=== PATIENT | female | born 1990 | race Caucasian/White ===

== ENCOUNTER 2019-08-28 17:19 | Emergency (ER) | payer BC, SELFPAY ==
[2019-08-28 17:58] VITALS: BP 137/76; PULSE 88; RESP 14; TEMP 36.4; O2SAT 100
--- NOTE | 2019-08-28 19:27 | ED.URI ---
HPI - URI/Sore Throat General Chief Complaint: Upper Respiratory Infection Stated Complaint: cough and sore throat Time Seen by Provider: 08/28/19 19:27 Source: patient Mode of arrival: ambulatory Limitations: no limitations History of Present Illness HPI Narrative: Lakisha Armijo is a 28 year old femalw with sore throat, L ear pain, Pain along L belinda and spasm type cough that started 5 days ago and has worsened. Related Data Home Medications Medication Instructions Recorded Confirmed PNV cmb#95-ferrous fumarate-FA 1 tablet PO DAILY 08/28/19 08/28/19 [] Allergies Allergy/AdvReac Type Severity Reaction Status Date / Time amoxicillin [From Augmentin] Allergy Rash Verified 08/28/19 18:11 clavulanic acid Allergy Rash Verified 08/28/19 18:11 [From Augmentin] Review of Systems Review of Systems: Narrative: CONSTITUTIONAL: Denies fever, chills, sweats. EYES: Denies visual changes, redness, discharge. ENT: Has rhinorrhea, has congestion, has sore throat, left otalgia. CARDIOVASCULAR: Denies chest pain, palpitations, edema. RESPIRATORY: Denies dyspnea, wheezing, dry cough GASTROINTESTINAL: Denies abdominal pain, nausea, vomiting, diarrhea. GENITOURINARY: Denies dysuria, hematuria, abnormal discharge SKIN: Denies rash or itching. MUSCULOSKELETAL: Denies acute back pain, joint pain, or myalgia. NEUROLOGIC: Denies numbness, or focal weakness. PSYCHIATRIC: Denies anxiety or depression. PMFSH Social History Social History Smoking status: Never smoker Alcohol intake: former Living arrangements: with family Comments At time of signature, I agree with nursing past medical, surgical, social and family history. There is no relevant family history pertinent to the presenting complaint. Exam Narrative: Exam Narrative: GENERAL: This is a well-nourished, well-developed patient, in no apparent distress. 31-week HEAD: normocephalic, atraumatic. EYES: Sclera clear/white. Vision is grossly intact. EARS: External ears normal, auditory canals clear and without drainage, TMs normal without perforation. Hearing grossly intact. NOSE: External nose normal with no obvious nasal discharge, nares without redness, no rhinorrhea. THROAT: Mucous membranes moist, posterior pharynx clear. NECK: Neck supple, non-tender without lymphadenopathy, masses or thyromegaly. CARDIOVASCULAR: Regular rate and rhythm without murmurs, gallops, or rubs. RESPIRATORY: Clear to auscultation. Breath sounds equal bilaterally. No wheezes, rales, or rhonchi. GASTROINTESTINAL: Abdomen soft, non-tender,distended consistent with gestation. SKIN: warm, intact with no suspicious lesions or rash, good texture and turgor. NEURO: awake, alert, and oriented to person, place and time. There were no obvious focal neurologic abnormalities. Steady gait EXTREMITIES: Normal range of motion. BACK: Nontender without deformity or crepitance. . Course Course Emergency Course: Strep negative treat with Mucinex DM, Flonase, Zpak ( allergic to amoxil), benzocaine lozenges Vital Signs Vital signs: Vital Signs Temperature 97.6 F 08/28/19 17:58 Pulse Rate 88 08/28/19 17:58 Respiratory Rate 14 08/28/19 17:58 Blood Pressure 137/76 08/28/19 17:58 Pulse Oximetry 100 08/28/19 17:58 Temperature 97.6 F 08/28/19 17:58 Pulse Rate 88 08/28/19 17:58 Respiratory Rate 14 08/28/19 17:58 Blood Pressure 137/76 08/28/19 17:58 Pulse Oximetry 100 08/28/19 17:58 MDM - URI/Sore Throat Differential Diagnosis Differential diagnosis: Likely upper respiratory infection, viral infection and pharyngitis Lab Data Labs: Strep Screen Presumptive Negative *(Reference Range: Negative)* Discharge Plan Discharge Clinical Impression: Ear pain, left, Cough Pharyngitis Qualifiers: Pharyngitis/tonsillitis etiology: unspecified etiology Quali
== END 2019-08-28 19:52 | disposition home or self-care (01) ==
PROVIDERS: Emergency Provider Nurse Practitioner; PCP Internal Medicine
DX: J02.9 Acute pharyngitis, unspecified (principal); H92.02 Otalgia, left ear; R05 Cough
CPT/HCPCS: 87081; 87880; 99203; G0463

== ENCOUNTER 2019-11-03 17:55 | Emergency (ER) | payer BC, SELFPAY ==
[2019-11-03] VITALS (9 sets, daily range): BP systolic 105–146; BP diastolic 71–96; PULSE 90–103; RESP 17–25; TEMP 36.6; O2SAT 99–100
--- NOTE | 2019-11-03 18:24 | ECG_ITS ---
Measurements Intervals [place] Rate: 90 P: 52 [place]: 120 QRS: 31 QRSD: 91 T: 42 QT: 369 QTc: 453 Interpretive Statements SINUS RHYTHM INCOMPLETE RIGHT BUNDLE BRANCH BLOCK DELAYED PRECORDIAL R/S TRANSITION BASELINE ARTIFACT- I, III, AVR, AVL BORDERLINE ECG Electronically Signed On 11-04-2019 7:45:38 CDT by Jostin Palacios D.O.
--- NOTE | 2019-11-03 18:26 | ED.ABDPAIN ---
HPI - Abdominal Pain General Chief Complaint: Abdominal Pain Stated Complaint: abdominal pain Time Seen by Provider: 11/03/19 18:05 Source: patient Mode of arrival: ambulatory Limitations: no limitations History of Present Illness HPI narrative: 29 yo female with h/o HELLP syndrome , s/p 2 weeks who presents with c/o sudden onset of mid back pain and pain under both ribs 30 minutes ago. Patient states she had similar symptoms 2 weeks when she was diagnosed with HELLP. Her OBGYN is on staff at [facility], they have been monitoring her liver enzymes and plates. She denies sob, nauea, vomiting or fever. She denies any issues with her c section incision. She had labs drawn on 10/26/19 and her hemoglobin was 8.2 with platelets 405, AST 35 with ALT 58. Related Data Home Medications Medication Instructions Recorded Confirmed ibuprofen 11/03/19 Allergies Allergy/AdvReac Type Severity Reaction Status Date / Time amoxicillin [From Augmentin] Allergy Rash Verified 11/03/19 18:14 clavulanic acid Allergy Rash Verified 11/03/19 18:14 [From Augmentin] Review of Systems Review of Systems: All systems reviewed & are unremarkable except as noted in HPI and below Constitutional: Constitutional: Denies chills, Denies fever(s) and Denies weakness ENT: Denies dizziness Cardiovascular: Cardiovascular: Reports chest pain Respiratory: Respiratory: Denies dyspnea Gastrointestinal: Gastrointestinal: Reports abdominal pain, Denies diarrhea, Reports nausea and Denies vomiting [facility] Past Medical History Medical History (Updated 11/03/19 @ 19:44 by Naomi Dejesus MD) HELLP syndrome Surgical History Surgical History (Updated 11/03/19 @ 18:34 by Naomi Dejesus MD) Status post Social History Social History Smoking status: Never smoker Alcohol intake: former Exam Const: General: alert Orientation/consciousness: patient oriented x3 Other: distress due to pain Resp: Effort & Inspection: normal respiratory effort and no use of accessory muscles Auscultation: clear to auscultation bilaterally and no wheezes Cardio: Rate: regular rate Rhythm: regular rhythm Heart sounds: no murmurs GI: Inspection: non-distended GI Palp: Yes Soft to palpation, Yes Tenderness to palpation present (GI), No Guarding due to palpation present (GI) and No Rigid due to palpation Other: c section transvers clean dry and intact, no drainage or erythema Course Reevaluation(s) Reevaluation #1: PAtient states her pain has completely resolved and she is asking to be discharged. I have discussed with patient that her labs are stable. She states since her pain has spontaneously resolved she is comfortable with discharge home. This pain is likely GI related. Since patient does not have sob and pain has resolved spontaneously I believe it is unlikely PE Date: 11/03/19 Time: 19:40 Vital Signs Vital signs: Vital Signs Temperature 97.8 F 11/03/19 17:57 Pulse Rate 90 11/03/19 17:57 Respiratory Rate 20 11/03/19 17:57 Blood Pressure 146/77 H 11/03/19 17:57 Pulse Oximetry 100 11/03/19 17:57 Temperature 97.8 F 11/03/19 17:57 Pulse Rate 103 H 11/03/19 19:51 Respiratory Rate 17 11/03/19 19:51 Blood Pressure 142/96 H 11/03/19 19:51 Pulse Oximetry 100 11/03/19 19:51 MDM - Abdominal Pain Lab Data Attestation: I reviewed the patient's lab results. Result diagrams: 11/03/19 18:44 11/03/19 18:43 Labs: Lab Results 11/03/19 11/03/19 11/03/19 Range/Units 18:43 18:43 18:44 WBC 9.6 (4.5-10.0) K/mm3 RBC 3.54 L (4.2-5.4) M/mm3 Hgb 10.8 L (12.0-15.0) g/dL Hct 33.5 L (37.0-47.0) % MCV 94.6 (80-100) fl MCH 30.5 (26-34) pg MCHC 32.2 (32-36) g/dl RDW 13.8 (11.5-14.5) % Plt Count 621 H (150-375) k/mm3 MPV 9.1 (7.4-10.4) fl Immature Gran % (Au
--- NOTE | 2019-11-03 18:48 | PC.NURSE ---
In to give medications, pt states she is feeling much better at present and wants to wait to take the medications. Dr. Dejesus aware that patient is feeling better.
[2019-11-03 18:51] LABS: Basophils Absolute Auto 0.1 K/mm3 (0.0-0.1); Basophils Percent Auto 0.9 % (0.2-1.2); Eosinophils Absolute Auto 0.2 K/mm3 (0-0.3); Eosinophils Percent Auto 1.6 % (0-4.4); Hematocrit 33.5 % (37.0-47.0); Hemoglobin 10.8 g/dL (12.0-15.0); Immature Granulocyte Absolute 0.03 K/mm3 (0.00-0.031); Immature Granulocyte Percent A 0.3 % (0-0.5); Lymphocytes Percent Auto 41.8 % (18.3-44.2); Mean Corpuscular HGB Conc 32.2 g/dl (32-36); Mean Corpuscular Hemoglobin 30.5 pg (26-34); Mean Corpuscular Volume 94.6 fl (80-100); Mean Platelet Volume 9.1 fl (7.4-10.4); Monocytes Absolute Auto 0.5 K/mm3 (0.1-0.6); Monocytes Percent Auto 5.2 % (2.6-8.5); Neutrophils Absolute Auto 4.8 K/mm3 (1.3-6.7); Neutrophils Percent Auto 50.2 % (45.5-73.1); Platelet Count Result 621 k/mm3 (150-375); Red Blood Count 3.54 M/mm3 (4.2-5.4); Red Cell Distribution Width 13.8 % (11.5-14.5); White Blood Count 9.6 K/mm3 (4.5-10.0)
[2019-11-03 19:00] LABS: INR 0.9; Prothrombin Time 11.6 Seconds (11.1-14.7)
[2019-11-03 19:01] LABS: Partial Thromboplastin Time 28.4 SECONDS (22.3-36.8)
[2019-11-03 19:06] LABS: Alanine Aminotransferase 30 U/L (4-35); Albumin Level 4.6 g/dL (3.5-5.1); Alkaline Phosphatase 159 U/L (38-126); Aspartate Amino Transferase 44 U/L (14-36); Bilirubin,Total 0.4 mg/dL (0.2-1.3); Blood Urea Nitrogen 19 mg/dL (7-17); Calcium 9.6 mg/dL (8.4-10.2); Carbon Dioxide 23 mmol/L (22-30); Chloride 103 mmol/L (98-107); Estimated CRCL calculation 113 ml/min; Estimated Glomerular Filt Rate > 60; Glucose 108 mg/dL (65-105); Lactate Dehydrogenase 609 U/L (313-618); Lipase 155 U/L (23-300); Potassium 3.5 mmol/L (3.4-5.0); Sodium 138 mmol/L (137-145)
[2019-11-03 19:13] LABS: Add Urine Microscopic? YES; Amorphous Sediment Urine Moderate; Appearance Urine Cloudy (Clear); Bilirubin Urine Negative (Negative); Blood Urine 1+ (Negative); Color Urine Yellow (Yellow); Glucose Urine UA Negative (Negative); Ketones Urine Negative (Negative); Leukocyte Esterase Ur 1+ LEU/UL (Negative); Mucus Urine Rare /lpf; Nitrate Urine Negative (Negative); Protein Urine 2+ mg/dL (Negative); Specific Grav Ur 1.018 (1.001-1.035); Squamous Epithelial Cell Urine Few /hpf (Few); Urobilinogen Urine Negative mg/dL (<2.0); WBC Urine 16-20 /hpf
[2019-11-03 19:18] LABS: Troponin I < 0.012 ng/mL (0.000-0.034)
--- NOTE | 2019-11-03 19:21 | PC.NURSE ---
Bedside report to MAY Fernando, to continue care.
== END 2019-11-03 19:56 | disposition home or self-care (01) ==
PROVIDERS: Emergency Provider General Practice; PCP Internal Medicine
DX: O99.89 Other specified diseases and conditions complicating pregnancy, childbirth and the puerperium (principal); R10.13 Epigastric pain; O14.25 HELLP syndrome, complicating the puerperium
CPT/HCPCS: 36415; 80053; 81001; 83615; 83690; 84484; 85025; 85610; 85730; 87077; 87086; 87088; 87186; 93005; 99284

== ENCOUNTER 2021-06-23 18:48 | Emergency (ER) | payer BC, SELFPAY ==
[2021-06-23 19:24] VITALS: BP 125/64; PULSE 81; RESP 14; TEMP 36.8; O2SAT 100
--- NOTE | 2021-06-23 19:37 | ED.SOB ---
HPI - SOB/Dyspnea General Chief Complaint: Shortness of Breath/Dyspnea Stated Complaint: sob Time Seen by Provider: 06/23/21 19:55 Source: patient and RN notes reviewed Mode of arrival: ambulatory Limitations: no limitations History of Present Illness HPI Narrative: 30-year-old female presents concern for a feeling of shortness of breath that started today. Reports some tiredness and lightheadedness during lunchtime today. She denies any syncope, chest pain, cough, upper respiratory symptoms, fast heartbeat or palpitations, sweating. Denies any history of similar issues. She denies history of control pill use. She reports symptoms may worsen with activity. MD elicited complaint: shortness of breath Related Data Home Medications Medication Instructions Recorded Confirmed No Home Medications 06/23/21 06/23/21 Allergies Allergy/AdvReac Type Severity Reaction Status Date / Time amoxicillin [From Augmentin] Allergy Rash Verified 06/23/21 19:32 clavulanic acid Allergy Rash Verified 06/23/21 19:32 [From Augmentin] Review of Systems Review of Systems: CONSTITUTIONAL: Denies malaise, chills, sweats, or fever. Reports fatigue EYES: Denies visual changes, redness, or discharge. ENT: Denies rhinorrhea, congestion, sinus pain, otalgia and sore throat. CARDIOVASCULAR: Denies chest pain, palpitations, or edema. RESPIRATORY: Denies cough. Reports feeling of shortness of breath GASTROINTESTINAL: Denies abdominal pain, nausea, vomiting, diarrhea SKIN: Denies rash or itching. MUSCULOSKELETAL: Denies myalgia. NEUROLOGIC: Denies headache. Reports period of lightheadedness today All systems reviewed & are unremarkable except as noted in HPI and below PMFSH Past Medical History Medical History (Updated 06/23/21 @ 20:08 by Claudia Vincent NP) HELLP syndrome Surgical History Surgical History (System 02/06/20 @ 12:32 by Afua Subramanian) Status post Social History Social History (System 02/06/20 @ 12:32 by Afua Subramanian) Smoking status: Never smoker Alcohol intake: former Comments At time of signature, agree with nursing past medical, surgical, social and family history. There is no relevant family history pertinent to the presenting complaint Exam Narrative: GENERAL: Well-appearing, well-nourished, and in no acute distress. HEAD: Normocephalic, atraumatic. EYES: PERRLA, sclera clear ENT: Nares clear. Mucous membranes moist. NECK: Supple. No lymphadenopathy. No jugular venous distension, thyromegaly, or carotid bruits. Carotids were easily palpable bilaterally. CHEST: No respiratory distress. Clear to auscultation. No bony deformities, no asymmetry. Speaks in full sentences. HEART: Regular rate and rhythm. No murmur heard. Normal peripheral pulses. SKIN: Warm, dry, no visible rash. NEURO: Alert and oriented x3 PSYCH: Normal mood and affect Course Course Emergency Course: Discussed limited diagnostic capability at [facility], discussed transfer to emergency department for further evaluation. Discussed negative exam findings, normal vital signs. Patient and her choose to seek further evaluation with her primary care doctor and understand reasons to go the emergency room if symptoms change, worsen. Patient is aware of diagnosis, understands and agrees to treatment plan. Anticipatory guidance given. Patient agrees to follow-up as directed and is aware of reasons to seek care at the emergency department. Portions of this record may have been created with voice recognition software Vital Signs Vital signs: Reviewed. MDM - SOB/Dyspnea MDM Narrative Medical decision making narrative: Exam findings show no acute concerns or changes; patient is non-toxic appearing and is in no distress. Patient is appropriate for outpatient treatment and follow-up. Critical Care Time Critical Care Time Critical Care Time: No Discharge Plan Discharge Clinical Impression: Shortness of
[2021-06-25 02:32] LABS: SARS-CoV-2 RNA PCR Negative
== END 2021-06-23 20:12 | disposition home or self-care (01) ==
PROVIDERS: Emergency Provider Nurse Practitioner; PCP Internal Medicine
DX: R06.02 Shortness of breath (principal); Z20.822 Contact with and (suspected) exposure to COVID-19
CPT/HCPCS: 99213; C9803; G0463; U0003; U0005